=== PATIENT | female | born 1965 | race Two or more races ===

== ENCOUNTER 2017-04-27 17:44 | Emergency (ER) | payer OTHER ==
[~2017-04-27] VITALS: Ht 157.5 cm; Wt 73.9 kg
[2017-04-27 19:02] VITALS: BP 143/94
== END 2017-04-27 20:10 | disposition home or self-care (01) ==
LOC: ER 17:46
DX: S20.212A Contusion of left front wall of thorax, initial encounter (principal); M79.1 Myalgia; V43.52XA Car driver injured in collision with other type car in traffic accident, initial encounter; Y93.89 Activity, other specified; Y92.89 Other specified places as the place of occurrence of the external cause; Y99.8 Other external cause status
CPT/HCPCS: 71020; 81025; 93005